=== PATIENT | male | born 1945 | race Two or more races ===

== ENCOUNTER 2019-10-08 09:36 | Emergency (ER) | payer OTHER ==
[~2019-10-08] VITALS: Ht 188 cm; Wt 99.8 kg
[2019-10-08 10:33] LABS: Basophils # (auto) 0 10 ^3/uL (0-0.2); Basophils % (auto) 0.3 % (0.0-2.0); Eosinophils # (auto) 0.1 10 ^3/uL (0-0.8); Eosinophils % (auto) 0.6 % (0.0-7.0); Hematocrit 47.6 % (41.0-53.0); Hemoglobin 15.7 g/dL (13.5-17.5); Lymphocytes # (auto) 1.2 10 ^3/uL (0.4-5.4); Lymphocytes % (auto) 10.1 % (10.0-50.0); Mean Corpuscular Hemoglobin 31.7 pg (28.0-32.0); Mean Corpuscular Hgb Conc. 33.1 g/dL (32.0-36.0); Mean Corpuscular Volume 95.7 fL (80.0-100.0); Monocytes # (auto) 1.1 10 ^3/uL (0-1.3); Monocytes % (auto) 8.7 % (0.0-12.0); Neutrophils # (auto) 9.7 10 ^3/uL (1.6-8.6); Neutrophils % (auto) 80.3 % (37.0-80.0); Platelet Count (auto) 208 10^3/uL (140-450); Red Blood Cells 4.97 10^6/uL (4.5-5.90); Red Cell Distribution Width 14.6 % (11.8-14.3)
[2019-10-08 10:53] LABS: Albumin 3.5 g/dL (3.4-5.0); Anion Gap 6 (5-15); Blood Urea Nitrogen 17 mg/dL (7-18); Calcium 8.3 mg/dL (8.5-10.1); Carbon Dioxide 32 mmol/L (21-32); Chloride 104 mmol/L (98-107); Glucose 106 mg/dL (74-106); Magnesium 1.9 mg/dL (1.6-2.6); Sodium 142 mmol/L (136-145)
[2019-10-08 11:00] LABS: Alanine Aminotransferase 33 U/L (16-61); Alkaline Phosphatase 73 U/L (45-117); Aspartate Aminotransferase 21 U/L (15-37); BUN/Creatinine Ratio 24.3; Bilirubin, Total 0.9 mg/dL (0.2-1.0); GFR African American 143 mL/min; GFR Non-African American 118 mL/min; Total Protein 6.6 g/dL (6.4-8.2)
[2019-10-08 11:03] LABS: INR 1.13 (0.9-1.15); Partial Thromboplastin Time 27.9 sec (23.64-32.05)
[2019-10-08 11:04] LABS: Potassium 2.9 mmol/L (3.5-5.1)
[2019-10-08] MEDS ORDERED: POTASSIUM CHL 20MEQ/100ML 100 ML IV ONE (11:15)
[2019-10-08] MEDS ORDERED: POTASSIUM EFFERVESENT TAB 25 MEQ PO ONE (11:15)
[2019-10-08 14:11] VITALS: BP 137/81
[2019-10-08 14:27] LABS: BUN/Creatinine Ratio 22.7; Calcium 8.2 mg/dL (8.5-10.1); Potassium 4.5 mmol/L (3.5-5.1)
== END 2019-10-08 15:14 | disposition home or self-care (01) ==
LOC: EDBD 09:36 → ER 09:36
DX: E11.65 Type 2 diabetes mellitus with hyperglycemia (principal); E87.6 Hypokalemia; J45.909 Unspecified asthma, uncomplicated; F17.210 Nicotine dependence, cigarettes, uncomplicated
CPT/HCPCS: 36415; 80048; 80053; 82962; 83735; 83880; 84484; 85025; 85610; 85730; 93005; 96365; 96366; 99284; J3480; J7050

== ENCOUNTER 2022-06-25 23:34 | Inpatient (IN) | payer OTHER ==
[~2022-06-25] VITALS: Ht 188 cm; Wt 81.7 kg
[2022-06-26] VITALS (22 sets, daily range): BP systolic 96–130; BP diastolic 58–95
[2022-06-26] MEDS ORDERED: ACCU-CHEK COMFORT CURVE STRIP VI ONE ×2 (00:30→00:45)
[2022-06-26] MEDS ORDERED: DEXTROSE (50%) 50ML SYRG IV ONE ×2 (00:30→00:45)
[2022-06-26 00:40] LABS: Basophils # (auto) 0 10 ^3/uL (0-0.2); Basophils % (auto) 0.2 % (0.0-2.0); Eosinophils # (auto) 0.1 10 ^3/uL (0-0.8); Eosinophils % (auto) 0.5 % (0.0-7.0); Hematocrit 45.3 % (41.0-53.0); Lymphocytes # (auto) 0.8 10 ^3/uL (0.4-5.4); Lymphocytes % (auto) 7.5 % (10.0-50.0); Mean Corpuscular Hemoglobin 29.9 pg (28.0-32.0); Mean Corpuscular Volume 90.6 fL (80.0-100.0); Monocytes # (auto) 0.9 10 ^3/uL (0-1.3); Monocytes % (auto) 8.3 % (0.0-12.0); Neutrophils # (auto) 9.2 10 ^3/uL (1.6-8.6); Neutrophils % (auto) 83.5 % (37.0-80.0); Nucleated Red Blood Cells % 0.1 %; Red Cell Distribution Width 17.8 % (11.8-14.3)
[2022-06-26 00:58] LABS: Albumin 3.5 g/dL (3.4-5.0); Calcium 8.6 mg/dL (8.5-10.1); Potassium 3.2 mmol/L (3.5-5.1)
[2022-06-26 01:01] LABS: Bilirubin, Total 1.4 mg/dL (0.2-1.0); Total Protein 6.5 g/dL (6.4-8.2)
[2022-06-26] MEDS ORDERED: LACTATED RINGER'S 1,000 ML IV ONE ×2 (02:00→05:00)
[2022-06-26] MEDS ORDERED: dilTIAZem 25 MG/5 ML VIAL IV ONE ×4 (02:00→06:30)
[2022-06-26] MEDS ORDERED: D5W/SOD CHLO 0.9% 1,000 ML IV ONE (02:00)
[2022-06-26 03:33] LABS: INR 1.15 (0.9-1.15); Partial Thromboplastin Time 29.8 sec (24.6-33.4)
[2022-06-26] MEDS ORDERED: ACETAMINOPHEN 325 MG TAB PO PRN (09:45)
[2022-06-26] MEDS ORDERED: MAGNESIUM SULFATE 1GM/100ML 100 ML IV ONE (09:45)
[2022-06-26] MEDS ORDERED: DEXTROSE (50%) 50ML SYRG IV PRN ×2 (09:45→17:45)
[2022-06-26] MEDS ORDERED: D5W/SOD CHL 0.45% 1,000 ML IV SCH (09:45)
[2022-06-26] MEDS ORDERED: NITROGLYCERIN 0.4 MG SL TAB SL PRN (09:45)
[2022-06-26] MEDS ORDERED: MORPHINE SULFATE INJ 2 MG/ml SYRG IV PRN ×2 (09:45)
[2022-06-26] MEDS ORDERED: AMIODARONE HCL 150 MG in D5W 5% 100 ML IV ONE (09:45)
[2022-06-26] MEDS ORDERED: NITROGLYCERIN 0.4MG/HR TOPICAL PATCH TD ONE (09:45)
[2022-06-26] MEDS ORDERED: cefTRIAXone 1GM/50ML D5W 50 ML IV ONE (09:45)
[2022-06-26] MEDS ORDERED: MORPHINE SULFATE INJ 2 MG/ml SYRG IV ONE (09:45)
[2022-06-26] MEDS ORDERED: ATORVASTATIN 20 MG TAB PO ONE (09:45)
[2022-06-26] MEDS ORDERED: AMIODARONE 450mg/250ml AE 250 ML IV SCH (10:00)
[2022-06-26] MEDS ORDERED: NICOTINE 7MG/24HR TOPICAL PATCH TD SCH (10:00)
[2022-06-26] MEDS: ACCU-CHEK COMFORT CURVE STRIP VI SCH ×8 (10:45→21:55)
[2022-06-26] MEDS ORDERED: LISI-716 PO (10:59)
[2022-06-26] MEDS ORDERED: ALBUTEROL SULF 2.5 MG/0.5ML(0.5%) NEB SOLN NEB PRN (11:00)
[2022-06-26 11:21] LABS: Blood Alcohol < 3.0 mg/dL (0-5); Cholesterol 115 mg/dL (< 200); Triglycerides 64 mg/dL (< 150)
[2022-06-26 11:23] LABS: HDL Cholesterol 69 mg/dL (40-59); LDL Cholesterol 37 mg/dL (< 100)
[2022-06-26] MEDS ORDERED: ENOXAPARIN SOD 100 MG/1 ML SYRINGE SC ONE (11:30)
[2022-06-26] MEDS: AZITHROMYCIN 500MG/ 250ML 250 ML IV SCH ×2 (11:36→12:47)
[2022-06-26] MEDS ORDERED: AMIODARONE HCL (50 MG/ ML) 3 ML VIAL IV ONE (11:40)
[2022-06-26 13:27] LABS: Urine Bacteria NONE SEEN /hpf (None Seen); Urine Blood TRACE /uL (Negative); Urine Hyaline Cast FEW /lpf (0 - 2); Urine Mucus FEW (None Seen); Urine Specific Gravity 1.024 (1.001-1.035); Urine WBC 2 /hpf (0 - 3)
[2022-06-26 13:55] LABS: Alcohol, Urine < 3.0 mg/dL (0-10); Amphetamine Screen, Urine NEGATIVE (NEGATIVE); Barbiturate Scree,Urine NEGATIVE (NEGATIVE); Benzodiazephine Screen, Urine NEGATIVE (NEGATIVE); Cannabinoid Screen, Urine NEGATIVE (NEGATIVE); Cocaine Screen, Urine NEGATIVE (NEGATIVE); Phencyclidine Screen, Urine NEGATIVE (NEGATIVE)
[2022-06-26 14:03] LABS: Opiate Scree,Urine POSITIVE (NEGATIVE)
[2022-06-26] MEDS: POTASSIUM CHL 20MEQ/100ML 100 ML IV SCH ×2 (15:06→18:46)
[2022-06-26] MEDS: SODIUM CHLORIDE 0.9% 1,000 ML IV SCH (17:45)
[2022-06-26] MEDS: AMIODARONE 450mg/250ml AE 250 ML IV SCH (18:15)
[2022-06-26] MEDS ORDERED: POTASSIUM CHL 20MEQ/100ML 100 ML IV ONE (18:38)
[2022-06-26] MEDS ORDERED: IPRATROPIUM BROM 0.5 MG/2.5ML INH SOL NEB PRN (19:45)
[2022-06-26] MEDS: ALBUTEROL SULF 2.5 MG/0.5ML(0.5%) NEB SOLN NEB PRN (21:12)
[2022-06-26] MEDS: ENOXAPARIN SOD 80 MG/0.8ML SYRINGE SC SCH (21:55)
[2022-06-26] MEDS: METOPROLOL SUCCINATE XL 50 MG TAB PO SCH (21:55)
[2022-06-26] MEDS: ATORVASTATIN 20 MG TAB PO SCH (21:55)
[2022-06-26] MEDS: InsuLIN REG 1unit/0.01ml Soln (100units/ml) SC SCH (21:56)
[2022-06-26] MEDS: HYDROcodone-ACET 5/325MG TAB PO PRN (23:27)
[2022-06-27] VITALS (67 sets, daily range): BP systolic 83–130; BP diastolic 30–94
[2022-06-27] MEDS: SODIUM CHLORIDE 0.9% 1,000 ML IV SCH ×3 (01:58→12:38)
[2022-06-27 03:58] LABS: Basophils # (auto) 0 10 ^3/uL (0-0.2); Basophils % (auto) 0.4 % (0.0-2.0); Eosinophils # (auto) 0.1 10 ^3/uL (0-0.8); Eosinophils % (auto) 1.2 % (0.0-7.0); Hematocrit 42.4 % (41.0-53.0); Hemoglobin 14.2 g/dL (13.5-17.5); Lymphocytes # (auto) 1.3 10 ^3/uL (0.4-5.4); Lymphocytes % (auto) 13.4 % (10.0-50.0); Mean Corpuscular Hemoglobin 30.2 pg (28.0-32.0); Mean Corpuscular Hgb Conc. 33.5 g/dL (32.0-36.0); Mean Corpuscular Volume 90.2 fL (80.0-100.0); Monocytes # (auto) 1.1 10 ^3/uL (0-1.3); Monocytes % (auto) 10.9 % (0.0-12.0); Neutrophils # (auto) 7.2 10 ^3/uL (1.6-8.6); Neutrophils % (auto) 74.1 % (37.0-80.0); Nucleated Red Blood Cells % 0.2 %; Red Cell Distribution Width 17.2 % (11.8-14.3); White Blood Cell 9.7 10^3/uL (4.4-10.8)
[2022-06-27 04:02] LABS: Albumin 2.8 g/dL (3.4-5.0); Potassium 3.9 mmol/L (3.5-5.1)
[2022-06-27 04:06] LABS: BUN/Creatinine Ratio 20.8 (10.0-20.0); Bilirubin, Total 1.7 mg/dL (0.2-1.0); Total Protein 5.8 g/dL (6.4-8.2)
[2022-06-27] MEDS: HYDROcodone-ACET 5/325MG TAB PO PRN ×3 (06:38→20:28)
[2022-06-27] MEDS: ACCU-CHEK COMFORT CURVE STRIP VI SCH ×4 (06:40→21:56)
[2022-06-27] MEDS: InsuLIN REG 1unit/0.01ml Soln (100units/ml) SC SCH ×4 (06:40→22:01)
[2022-06-27] MEDS: ALBUTEROL SULF 2.5 MG/0.5ML(0.5%) NEB SOLN NEB PRN (07:23)
[2022-06-27] MEDS: cefTRIAXone 1GM/50ML D5W 50 ML IV SCH (08:58)
[2022-06-27] MEDS: ENOXAPARIN SOD 80 MG/0.8ML SYRINGE SC SCH ×2 (08:59→21:32)
[2022-06-27] MEDS ORDERED: LISINOPRIL 10 MG TAB PO SCH (10:00)
[2022-06-27] MEDS: METOPROLOL SUCCINATE XL 50 MG TAB PO SCH ×2 (10:00→21:32)
[2022-06-27] MEDS ORDERED: NICOTINE 21MG/24 HR TOPICAL PATCH TD SCH (10:00)
[2022-06-27] MEDS: AMIODARONE 450mg/250ml AE 250 ML IV SCH (10:41)
[2022-06-27] MEDS: ATORVASTATIN 20 MG TAB PO SCH (21:32)
[2022-06-27] MEDS ORDERED: AMIODARONE HCL 200 MG TAB PO SCH (22:00)
[2022-06-28] VITALS (8 sets, daily range): BP systolic 98–127; BP diastolic 78–92
[2022-06-28] MEDS: HYDROcodone-ACET 5/325MG TAB PO PRN (06:37)
[2022-06-28] MEDS: InsuLIN REG 1unit/0.01ml Soln (100units/ml) SC SCH (06:37)
[2022-06-28] MEDS: ACCU-CHEK COMFORT CURVE STRIP VI SCH (06:37)
[2022-06-28] MEDS: cefTRIAXone 1GM/50ML D5W 50 ML IV SCH (08:37)
[2022-06-28] MEDS ORDERED: APIX5TAB PO (09:26)
[2022-06-28] MEDS ORDERED: ATOR20TA50 PO (09:26)
[2022-06-28] MEDS ORDERED: METO-6 PO (09:26)
== END 2022-06-28 11:35 | disposition home or self-care (01) | DRG 637 ==
LOC: EDBD 23:34 → ER 23:34 → TELE 06-26 10:01 → ICU WEST 06-26 16:07
PROVIDERS: ADMIT Registered Nurse; ATTEND Internal Medicine
DX: E11.649 Type 2 diabetes mellitus with hypoglycemia without coma (principal); G93.41 Metabolic encephalopathy; I20.0 Unstable angina; I48.91 Unspecified atrial fibrillation; E78.5 Hyperlipidemia, unspecified; J44.9 Chronic obstructive pulmonary disease, unspecified; E86.0 Dehydration; I10 Essential (primary) hypertension; E87.6 Hypokalemia; F17.210 Nicotine dependence, cigarettes, uncomplicated; R79.89 Other specified abnormal findings of blood chemistry; Z79.899 Other long term (current) drug therapy
CPT/HCPCS: 36415; 70450; 71045; 80053; 80061; 80307; 80320; 81001; 82010; 82962; 83036; 83880; 83930; 84443; 84484; 85025; 85379; 85610; 85730; 87040; 87081; 93005; 93306; 93925; 93970; 94640; 96361; 96365; 96366; 96368; 96375; 96376; G0378; J0696; J3480; J7060